=== PATIENT | female | born 1970 | race Caucasian/White ===

== ENCOUNTER 2019-10-26 07:57 | Emergency (ER) | payer OTHER, SELFPAY ==
[2019-10-26 08:01] VITALS: BP 148/83; PULSE 103; RESP 20; TEMP 36.8; O2SAT 99; BMI 30.4
--- NOTE | 2019-10-26 08:05 | W.ED.EXTPRO ---
HPI - Extremity Problem General: Chief complaint: Extremity Injury, Lower Stated complaint: Knee pain Time Seen by Provider: 10/26/19 08:01 History of Present Illness: HPI Narrative: Patient comes in today with complaints of left knee pain. Patient reports that when she had bent down yesterday and went to get up she felt a pop in her left knee. Since that time she has had pain and discomfort to the lateral aspect of the knee joint. Patient appears well. No obvious swelling or deformity is noted to the knee. Patient appears in moderate pain. Review of Systems General: Reports: 10 or more systems reviewed and unremarkable except in HPI and below Musc: Reports: joint pain (left knee) PFSH ED PFSH: Statuses (acute, chronic, etc) shown below reflect problem list status as previously entered and may not be historically accurate Social History Smoking and tobacco status: current every day smoker Physical Exam Const: COMMON NORMALS: no apparent distress and oriented x3 GENERAL APPEARANCE: cooperative HENMT: COMMON NORMALS: normocephalic, external ears normal, EAC's normal, TM's normal bilaterally and external nose normal HEAD & SCALP: normal to inspection and normocephalic FACE & SINUS: normal facial exam NOSE: external nose normal GENERAL EAR: hearing not grossly impaired EXTERNAL EAR: Yes external ears normal EXTERNAL AUDITORY CANAL: EAC's normal TYMPANIC MEMBRANE: TM's normal bilaterally MOUTH: oral and palatal mucosa normal THROAT: posterior oropharynx normal Eye: COMMON NORMALS: PERRL and EOMs intact bilaterally PUPIL: Yes PERRL Neck/C-Spine: COMMON NORMALS: full ROM and no lymphadenopathy Lymph: LYMPHATIC: no lymphedema noted Chest: COMMONS NORMALS: inspection of chest normal and palpation of chest normal Resp: COMMON NORMALS: normal respiratory effort and clear to auscultation bilaterally AUSCULTATION: clear to auscultation bilaterally Cardio: COMMON NORMALS: regular rate and regular rhythm RATE: regular rate RHYTHM: regular rhythm GI: COMMON NORMALS: normal to inspection, nondistended, normoactive bowel sounds and non-tender : COMMON NORMALS: Yes no CVA tenderness BLADDER/KIDNEY EXAM: Yes no CVA tenderness Back/Pelvis: COMMON NORMALS: no CVA tenderness and thoracic and lumbar spine normal to inspection Extremity: COMMON NORMALS: full ROM LEFT LOWER EXTREMITY: Yes knee joint (tenderness to lateral plateau of left tibia, no crepitus with knee movement) Left knee: Yes ROM (limited flexion and extension due to pain) Neuro: COMMON NORMALS: oriented x3, moves all extremities and no focal motor deficits Psych: COMMON NORMALS: mental status grossly normal and cooperative Skin: COMMON NORMALS: no rashes or lesions noted GENERAL SKIN EXAM: no rashes or lesions noted Course Vital Signs: Vital signs: Vital Signs Temperature 98.2 F 10/26/19 08:01 Pulse Rate 79 10/26/19 08:46 Respiratory Rate 17 10/26/19 08:46 Blood Pressure 131/79 10/26/19 08:46 Pulse Oximetry 98 10/26/19 08:46 MDM - Extremity (Nontraumatic) MDM Narrative: Medical decision making narrative: Patient comes in today with complaints of left lateral knee pain. Patient reports injury when she bent down hyperflexed her knee and when she went to stand up she felt a pop and pain. Patient has had pain and discomfort since that time yesterday. On exam tenderness is noted to the tibial plateau of the lateral left knee. Range of motion is limited due to pain with flexion and extension. Pulses are intact distally no swelling is noted distally. No significant swelling is noted to the knee. No tenderness of the patellar femoral tendon is noted. Differential diagnosis includes tibial plateau fracture, meniscal injury, strain, sprain. Reviewed exam with patient with recommendations for treatment and need for follow-up. Patient was written for prescriptions of medication for pain. Patient reported understanding of care plan and need for follow-up. Discharge Plan Discharge Patient Disposition: Home, Self-Care Clinical Impression: Acute internal derangement of knee Qualifiers: Laterality: left Qualified Code(s): M23.92 - Unspecified internal derangement of left knee Condition: Stable Prescriptions: New diclofenac sodium 75 mg tablet,delayed release (DR/EC) 75 mg PO BID Qty: 20 RF: 0 hydrocodone-acetaminophen 5-325 mg tablet 1 tab PO Q8H PRN (Reason: pain) Qty: 10 RF: 0 Discharge Orders: Discharge Order (Routine); Ordered 10/26/19 Ordered By: Law Mcdermott Referrals: Paulina Torres MD [Family Provider] - Discharge Diet: Usual diet Discharge Activity: Increase activity as tolerated Patient Instructions: Crutch Use, Hydrocodone/Acetaminophen (By mouth), Baclofen (By mouth), Crutch Instructions (ED), Knee Pain (ED), RICE Therapy (ED), Opioid Pain Management (ED), Opioid Safety Activity Restrictions/Additional Instructions: Most acute knee pain will take up to 7-10 days for improvement Use crutches until you can bear weight on the knee Use ice and heat for pain and discomfort Use Diclofenac routinely with acetaminophen for pain control Use hydrocodone as needed for breakthrough severe pain Gentle stretching and range of motion of the knee Follow-up with primary care in one week for recheck Follow-up with orthopedics for further treatment and evaluation Case management will contact you with assistance for orthopedic follow-up Interventions: ED Discharge Assessment Last Done: 10/26/19 08:46 Coding Level of Care Code ED Car Top Bolter for Jackeline Quintana Exam Problem Focused
[2019-10-26 08:06] VITALS: BP 148/83; O2SAT 98
--- NOTE | 2019-10-26 08:06 | XRR_ITS ---
PROCEDURE INFORMATION: Exam: XR Left Knee Exam date and time: 10/26/2019 8:24 AM Age: 49 years old Clinical indication: Pain; Knee; Left TECHNIQUE: Imaging protocol: XR Left knee. Views: 3 views. COMPARISON: No relevant prior studies available. FINDINGS: No acute fracture or dislocation is demonstrated. XR/XR knee LT 3V* [id number] IMPRESSION: No acute osseous abnormality is demonstrated.
[2019-10-26 08:10] VITALS: BP 148/83; O2SAT 98
[2019-10-26] MEDS: ketorolac 30 mg/mL INJ IM (08:12)
[2019-10-26] MEDS: HYDROcodone-acetaminophen 7.5-325 mg Tablet 1 TAB PO (08:12)
[2019-10-26 08:15] VITALS: BP 148/83; O2SAT 99
[2019-10-26 08:46] VITALS: BP 131/79; PULSE 79; RESP 17; O2SAT 98
--- NOTE | 2019-10-28 10:08 | DCPLANNER ---
city manager had message to schedule a follow up appointment for patient with ortho. city manager called ortho, spoke with Soledad, gave clinic patients information. city manager was told that patients information would be printed off and reviewed. Clinic will call case liner and patient with appointment information.
--- NOTE | 2019-10-29 11:33 | DCPLANNER ---
Patient has a follow up appointment scheduled for Wednesday, October 30, 2019 at 1:[address] Cho. Clinic will call patient with appointment information.
--- NOTE | 2019-11-01 15:44 | DCPLANNER ---
Patient did attend appointment scheduled for 10.30.19 with ortho.
== END 2019-10-26 08:52 | disposition home or self-care (01) ==
PROVIDERS: Emergency Provider Nurse Practitioner Family; Family Provider Family Medicine
DX: M23.92 Unspecified internal derangement of left knee (principal); F17.210 Nicotine dependence, cigarettes, uncomplicated
CPT/HCPCS: 73562; 96372; 99281; E0114; J1885

== ENCOUNTER 2019-11-08 11:38 | Outpatient (CLI) | payer OTHER, SELFPAY | END 2019-11-08 11:39 | disposition home or self-care (01) | LOC: SPT 11:38 | PROVIDERS: Family Provider Family Medicine; PCP Family Medicine; Visit Provider Orthopaedic Surgery | DX: M23.92 Unspecified internal derangement of left knee (principal) | CPT/HCPCS: L1812 ==

== ENCOUNTER 2019-11-08 14:58 | Outpatient (CLI) | payer OTHER, SELFPAY ==
--- NOTE | 2019-11-08 15:15 | MR_ITS ---
WS: [id number] MRI LEFT KNEE NONCONTRAST TECHNIQUE: Axial PD, coronal PD fat sat, coronal PD, sagittal PD, and sagittal PD fat-sat images obta ined. CLINICAL INFORMATION: Knee pain COMPARISON: None. FINDINGS: Distal quadriceps and patella tendons are intact. Moderate suprapatellar joint effusion. Small amount of prepatellar soft tissue edema. Anterior and posterior cruciate ligaments are intact. Complex extensive tear involving the body and posterior horn lateral meniscus. Diffuse blunting of th e posterior horn lateral meniscus with edema. Suspected displaced meniscal fragment into the intercon dylar fossa and along the anterior horn. Osteochondral defect involving the lateral tibial plateau wi th a small amount of subchondral edema. Osteochondral defect measures 5 mm. Displaced meniscal fragme nt measures 7 mm Chronic appearing intrasubstance signal abnormality involving the medial meniscus with mild chronic t hinning. No acute appearing medial meniscal tears. Diffuse edema along the medial and lateral collateral ligaments consistent with ligamentous sprain. C ollateral ligaments appear grossly intact. Subcutaneous edema about the knee soft tissues. Moderate c hondromalacia patella involving the lateral patella facet. This is advanced for patient this age. No subchondral edema. MR/MR knee LT wo con* [id number] IMPRESSION: 1. Moderate suprapatellar effusion. 2. Anterior and posterior cruciate ligaments appear intact. 3. Complex acute tear involving the body and posterior horn lateral meniscus w ith suspected displaced fragment into the intercondylar fossa and along the ant erior horn. Diffuse associated edema. 4. Underlying osteochondral defect involving the lateral tibial plateau with a small amount of subchondral edema. Osteochondral defect measures 5 mm. 5. Moderate chondromalacia patella involving the lateral patella facet is adva nced for patient this age. No subchondral edema in the patella. 6. Edema along the medial and lateral collateral ligaments consistent with mil d sprain. Collateral ligaments appear intact.
== END 2019-11-08 14:59 | disposition home or self-care (01) ==
LOC: RADSHAW 15:01
PROVIDERS: Family Provider Family Medicine; PCP Family Medicine; Visit Provider Orthopaedic Surgery
DX: M25.462 Effusion, left knee (principal); S83.272A Complex tear of lateral meniscus, current injury, left knee, initial encounter; X58.XXXA Exposure to other specified factors, initial encounter; M22.42 Chondromalacia patellae, left knee; R60.9 Edema, unspecified
CPT/HCPCS: 73721

== ENCOUNTER 2019-11-26 08:44 | Day surgery (SDC) | payer OTHER, SELFPAY ==
[2019-11-25 17:07] VITALS: BMI 34.7
[2019-11-26] VITALS (11 sets, daily range): BP systolic 122–159; BP diastolic 84–110; PULSE 8–103; RESP 13–20; TEMP 36.3–36.7; O2SAT 93–100
[2019-11-26] MEDS: acetaminophen 500 mg Tablet 1000 MG PO (09:40)
[2019-11-26] MEDS: sodium chloride 0.9% 1,000 ML 30 ML IV (09:40)
[2019-11-26] MEDS: CELEcoxib 200 mg Capsule 400 MG PO (09:40)
--- NOTE | 2019-11-26 10:10 | ANES.PREANE2 ---
Pre-Anesthetic Assessment Pre-Anesthetic Assessment: Height/Weight: Height 1.73 m Weight 103.419 kg Temp Pulse Resp BP Pulse Ox 97.6 F 97 18 137/84 98 11/26/19 09:44 11/26/19 09:44 11/26/19 09:44 11/26/19 09:44 11/26/19 09:44 Preop Diagnosis: Left knee lateral meniscal tear and lateral tibial osteochondral lesion Proposed Procedure: Operation Date: 11/26/19 10:25 Proposed Procedures p left knee arthroscopy with resection lateral meniscus vs repair, poss debridment microfracture vs repair of osteochondral defect lateral tibial plateau 12560, 76711 M23.92 M23.359 M95.8(Left) - Diogenes Cho DO Last intake: Intake Last Liquid Date 11/25/19 Last Liquid Time 22:00 Last Solid Date 11/25/19 Last Solid Time 22:00 Social: Social History: Alcohol (occ) and Tobacco Exam: Pre-Anes Outpt Exam: alert, oriented x 3, clear to auscultation bilaterally and regular rate & rhythm Airway: Submandibular: WNL Cervical ROM: WNL MP: 2 Dentition: Other (teeth ok) History/ROS: No significant history except as noted Pulmonary: Pulmonary: None reported CV/HEM: CV/HEM: HTN : : None reported Hepatic: Hepatic: None reported GI: GI: None reported Metabolic: Metabolic: None reported Musc/skel: Musc/skel: None reported Neuropsych: Neuropsych: None reported Anesthetic Plan: ASA status: 2 Anesthesia: Anesthesia Evaluation and General Risk of > 500 ml blood loss (7ml/kg in children): No Meds/Allergies Current Medications: Current Medications Generic Name Dose Route Start Last Admin Trade Name Freq PRN Reason Stop Dose Admin Sodium Chloride 1,000 mls @ 30 ml s/hr 11/26/19 09:15 11/26/19 09:40 Sodium Chloride 0.9% IV 11/27/19 09:14 30 mls/hr .Q24H SANG Administration PFSH Anesthesia PFSH: Medical History (Updated 11/26/19 @ 10:11 by Osmani Villalpando MD) Accelerated essential hypertension Acute lateral meniscus tear of left knee MCL sprain of left knee Osteochondral lesion Surgical History H/O removal of cyst Family History Other Diabetes Social History Smoking and tobacco status: current every day smoker Data Anesthesia Cardiac Studies: No Data to Display
--- NOTE | 2019-11-26 12:06 | P.HPUD_ITS ---
Surgery/Procedure H&P Update DATE OF PROCEDURE: November 26, 2019 DATE H&P PERFORMED: 11/25/19 H&P UPDATE INFORMATION: H&P completed within last 30 days, No changes to prior documentation and H&P is in [facility] EMR on date indicated PREOP DIAGNOSIS: Left knee lateral meniscal tear and lateral tibial osteochondral lesion PLANNED PROCEDURE: Operation Date: 11/26/19 10:25 Proposed Procedures p left knee arthroscopy with resection lateral meniscus vs repair, poss debridment microfracture vs repair of osteochondral defect lateral tibial plateau 58447, 47735 M23.92 M23.359 M95.8(Left) - Diogenes Cho DO
--- NOTE | 2019-11-26 12:07 | P.OP_ITS ---
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 Stable osteochondral lesion lateral tibial plateau Procedure Done: Diagnostic arthroscopy left knee with resection of lateral meniscal bucket-handle tear Implants: None Specimens removed/disposition: Arthroscopic shavings and portions of meniscus debrided and disposed of in OR Pathology: none sent Surgeon: Diogenes Cho Anesthesia: General Estimated blood loss (mL): 10 Tourniquet time (min): 50 (At 300 mmHg pressure) Complications: No apparent complications Findings: Mild synovitis left knee Grade III chondromalacia patella Intact medial compartment articular surface and meniscus Anterior and posterior cruciate ligaments intact both visually endoprobe Displaced bucket-handle tear of the lateral meniscus that was displaced into the intercondylar notch. When the meniscus was reduced actually looked as if it could have been a discoid meniscus as well the patient had nearly an entire meniscal detachment and a white on white region for this reason we resected the meniscus versus performing a repair. Osteochondral lesion on the lateral tibial plateau was found to be stable and more consistent with fissuring of the hyaline cartilage then osteo-chondritis dissecans type lesion. Condition: stable Disposition: PACU Brief History: 49-year-old white female who in October was bending down to load pain and then stood up and noticed 3 popping sensations in her left knee. Since that time she is had persistent complaints of pain and wanting to give way of her left knee. Plain film x-rays show no evidence of fracture or dislocation. MRI shows displaced lateral meniscal tear into the intercondylar notch suprapatellar effusion and possibility of an osteochondral lesion on the lateral tibial plateau. Risk, benefits and potential complications of surgery were discussed with the patient. Risks include are not limited to infection, nerve/blood vessel/injury, failure to leave all pain. We discussed if a meniscal repair was performed there would be a possibility of a re-tear. We also discussed if she required repair of the osteochondral lesion that she may need to be partially weightbearing postoperatively. All questions were answered patient was agreeable to proceed with surgery. Procedure: 1.5 g [facility] Patient was identified. Surgical permit was signed. Surgical site was signed. Patient received 1.5 g of cefuroxime intravenously for surgical prophylaxis. She was taken to the operating. She was placed on the operative table. She was placed under general anesthesia that difficulty. A tourniquet was placed about the upper aspect the left thigh. The left lower extremities and sterilely prepped and draped in usual fashion. A timeout was performed. The operative limb was exsanguinated using Esmarch bandage tourniquet inflated to 300 mmHg pressure. Standard anteromedial anterolateral portals were made with #11 blade. The arthroscope via the arthroscopic sheath was inserted in the suprasellar pouch knee distended with sterile saline with dilute epinephrine solution via the arthroscopic pump. Initially a shaver was placed through the anteromedial portal and partial synovectomy was performed to allow for visualization within the knee. Using a probe we identified that the articular surfaces in the medial compartment were intact as was the meniscus. Cruciate ligaments are intact. The lateral compartment revealed a displaced bucket-handle tear which in the posterior area was a white on white type of tear and was felt to have very low likelihood of being able to heal. For this reason using motorized shaver a meniscal biters to be performed near total lateral meniscectomy. The area of fissuring of the cartilage noted on MRI proved to be only grade 2 to early grade 3 chondromalacic changes but no loose osteochondritis dissecans type lesion. No treatment was required. The knee was copiously irrigated with sterile saline. The knee was injected with 10 cc of half percent ropivacaine and 40 mg of Kenalog. The 2 portal sites were closed with 4-0 nylon on skin. Antibiotic ointment was applied followed by sterile dressings with an Esdras overwrap. Tourniquet was deflated during application of dressings. The patient was aroused from general anesthesia. She was taken to the recovery room. She bhumi erated surgery well. All counts are correct.
[2019-11-26] MEDS: cefUROXime 1,500 MG in sodium chloride 0.9% (plus) 50 ML 100 MG IV (12:40)
[2019-11-26] MEDS: EPINEPHrine 1 mg/mL INJ 3 MG XX (13:48)
[2019-11-26] MEDS: triamcinolone 40 mg/mL SDV IM (14:00)
--- NOTE | 2019-11-26 14:14 | SUR.PHASEI ---
1412 PATIENT TO PACU AT THIS TIME. NO DISTRESS. RR EVEN AND UNLABORED. SPO2 99% ON RA. DRESSING INTACT TO LEFT KNEE, CDI, PEDAL PULSE STRONG AND PRESENT.
[2019-11-26] MEDS: fentaNYL 50 mcg/mL INJ 2mL IVP (14:33)
--- NOTE | 2019-11-26 14:52 | SUR.PHASEI ---
9769 PATIENT TO OPS, PAIN 7/10, WANTING PAIN PILL IN OPS. DRESSING INTACT TO LEFT KNEE, WITH FIRST ICE IN PLACE. PEDAL PULSE STRONG.
--- NOTE | 2019-12-01 20:03 | PM.OP ---
Operative Report Date of procedure: December 01, 2019 Pre-op Diagnosis: Left knee lateral meniscal tear and lateral tibial osteochondral lesion Post-op diagnosis: same Post-op Findings: see operative report below Procedure Done: diagnostic arthroscopy of left knee with resection of lateral meniscal bucket-handle tear Implants: not applicable Specimens removed/disposition: debrided portions of lateral meniscus disposed of in operating room Pathology: none sent Surgeon: Diogenes Cho Anesthesia: General Estimated blood loss (mL): 10 Tourniquet time (min): 50 Tourniquet time: at 300 mmHg pressure Complications: no apparent complications Findings: mild synovitis Medial compartment intact Anterior cruciate ligament and PCL intact Displaced bucket-handle tear into the intercondylar notch. grade 2-3 degenerative cartilage changes lateral tibial plateau an area of osteochondral lesion seen on MRI Condition: stable Disposition: PACU Brief History: 49-year-old white female who was bending to load paint on a brush felt a series of popping sensations in her left knee. Since that time she's had complaints of pain and giving way of her knee. Exam was suggestive of lateral compartment pathology. X-ray show no fracture-dislocation MRI shows MCL sprain and a tear of the lateral meniscus with displacement into the intercondylar notch plus the potential for osteochondral lesion noted with the fissuring in the posterior central area of lateral tibial plateau an MRI. Risks, benefits and potential complications of arthroscopic surgery discussed the patient. Risks include aren't limited to failure to evolve pain if the meniscal repair is perform the possibility of re-tear, stiffness, wound healing complications, nerve/blood vessel/tendon injury. Medical complications can include blood clots, heart attack, stroke risk up to including . All questions were answered patient agreeable to proceed with surgery. Procedure: patient identified. Surgical site was signed. Surgical permit was signed. Patient received 1.5 g of Zinacef for microbial prophylaxis. She was taken to the operating room. She is placed under general anesthesia. A tourniquet was placed but the upper aspect of the left lower extremity. The left lower extremity was then sterilely prepped and draped usual fashion. Timeout was performed. The operative limb was then exsanguinated using an Esmarch bandage and the tourniquet inflated to 300 mmHg pressure. Standard anteromedial anterolateral portals were made with #11 blade. The arthroscopic sheath and arthroscope were introduced via the anterolateral portal into the suprapatellar pouch. The knee was distended using sterile saline and dilute epinephrine solution through a arthroscopic pump. We introduced a motorized shaver through the anteromedial portal and debrided the synovium and fat pad to visualize the medial compartment of the knee and the entrance into the lateral aspect of the knee. Medial compartment was examined found to be intact. Anterior cruciate ligament and PCL are intact. A displaced large bucket-handle tear was noted into the intercondylar notch. The meniscus was reduced also had the appearance of a discoid type meniscus. Once the meniscus was reduced we debrided the area that appeared to be a discoid meniscus back to a normal sculpted meniscus. The posterior horn tear was white on white type of injury to the meniscus I did not think this would heal for this reason we elected to debride the meniscus. Essentially an entire lateral meniscectomies was performed. The tibial plateau. The posterior horn of the lateral meniscus showed some grade 2 fissures and a believe this represents focus on MRI. The knee was malik irrigated with sterile saline. Used to arthroscopic cautery to coagulate some of vessels along the capsular junction with the meniscus had been resected. The knee was injected with 10 mL of half percent ropivacaine and 40 mg of Kenalog. The portals, 2 in number closed with nylon on skin followed by antibiotic ointment and sterile dressings. Tourniquet was deflated during application of dressings. The patient was aroused from general anesthesia. She was taken to recovery room. She tolerated surgery well. All counts are correct. this may be a repeat dictation for this patient. I believe I dictated this operative report on the date of surgery however when I went to review the record no dictation was available.
== END 2019-11-26 15:26 | disposition home or self-care (01) ==
PROVIDERS: Family Provider Family Medicine; PCP Family Medicine; Visit Provider Orthopaedic Surgery
PROC: (CPT 29870; principal; 2019-11-26 10:20)
DX: S83.252A Bucket-handle tear of lateral meniscus, current injury, left knee, initial encounter (principal); X58.XXXA Exposure to other specified factors, initial encounter; I10 Essential (primary) hypertension; Z83.3 Family history of diabetes mellitus; F17.210 Nicotine dependence, cigarettes, uncomplicated
CPT/HCPCS: 29881; 12345; 81025; J0171; J0697; J1100; J1885; J2001; J2270; J2405; J2795; J3010; J3301; J3490; J7030

== ENCOUNTER 2019-12-02 10:15 | Outpatient (CLI) | payer OTHER, SELFPAY | END 2019-12-02 10:16 | disposition home or self-care (01) | LOC: SPT 10:16 | PROVIDERS: Family Provider Family Medicine; PCP Family Medicine; Visit Provider Orthopaedic Surgery | DX: Z46.89 Encounter for fitting and adjustment of other specified devices (principal) | CPT/HCPCS: L1830 ==

== ENCOUNTER 2019-12-11 15:52 | Outpatient (CLI) | payer OTHER, SELFPAY ==
--- NOTE | 2019-12-11 16:30 | USCV_ITS ---
Brayan Zapata Age: 49 Gender: F : 1970 Exam Date: 12/11/2019 16:21 Ordering Phys: Diogenes Cho DO Technologist: SHAHEEN PEDERSEN Exam Location: [facility]_ Indication: LEFT CALF PAIN HISTORY: Status post knee surgery. PROCEDURES: Examined were the left greater saphenous, common femoral, femoral, profunda, popliteal, posterior tibial veins, and peroneal trunk.. FINDINGS: Normal 2-D Doppler and augmentation and compressibility throughout the lower extremity venous structures. Additional imaging through the proximal calf veins also reveals no thrombus. Limited evaluation of the greater saphenous vein is patent with no thrombus. CONCLUSIONS No DVT left lower extremity. Dr. Letitia Mckinney DO (Electronically Signed) Final Date: 12 December 2019 09:32 S
== END 2019-12-11 15:53 | disposition home or self-care (01) ==
LOC: RAD 15:52
PROVIDERS: Family Provider Family Medicine; PCP Family Medicine; Visit Provider Orthopaedic Surgery
DX: M79.662 Pain in left lower leg (principal); Z98.890 Other specified postprocedural states
CPT/HCPCS: 93971

== ENCOUNTER → 2020-04-15 08:30 | Outpatient (BNVA) | payer OTHER, SELFPAY | PROVIDERS: Family Provider Family Medicine; PCP Family Medicine; Visit Provider Orthopaedic Surgery | DX: M17.12 Unilateral primary osteoarthritis, left knee (principal); M25.562 Pain in left knee; M25.462 Effusion, left knee | CPT/HCPCS: 73560; 73565 ==

== ENCOUNTER 2021-07-15 13:04 | Outpatient (CLI) | payer OTHER, SELFPAY ==
--- NOTE | 2021-07-15 13:13 | MM_ITS ---
WS: [id number] BILATERAL DIGITAL SCREENING MAMMOGRAPHY WITH CAD CLINICAL INFORMATION: SCREENING HISTORY: Screening mammogram. No current complaints. COMPARISON: March 27, 2015. TECHNIQUE: Bilateral CC and MLO views. FINDINGS: The breasts are composed of heterogeneous fibroglandular density tissue, which can limit the detectio n of small underlying mass lesions. No suspicious mass, asymmetry, calcifications, or architectural d istortion. No evidence of malignancy. Stable lucent centered calcification right breast. MM/[place] [id number] IMPRESSION: BI-RADS: 2-Benign FOLLOW UP: 1 Year Follow-up Recommend return to annual screening mammography.
== END 2021-07-15 13:05 | disposition home or self-care (01) ==
PROVIDERS: PCP Family Medicine; Visit Provider Family Medicine
DX: Z12.31 Encounter for screening mammogram for malignant neoplasm of breast (principal)
CPT/HCPCS: 77067

== ENCOUNTER 2024-05-02 10:00 | Outpatient (CLI) | payer MEDICAID, SELFPAY ==
--- NOTE | 2024-05-02 09:43 | MM_ITS ---
WS: [id number] BILATERAL SCREENING DIGITAL TOMOSYNTHESIS MAMMOGRAM WITH CAD HISTORY: SCREENING COMPARISON: 07/15/2021, 03/27/2015 Bilateral CC and MLO views with tomosynthesis and synthetic mammography submitted. Computer aided det ection analyzed. Breast composition: The breasts are heterogeneously dense, which may obscure small masses. No suspici ous masses, microcalcifications or architectural distortion. Benign calcifications in each breast. MM/[place] [id number] IMPRESSION: BI-RADS: 2-Benign FOLLOW UP: 1 Year Follow-up
== END 2024-05-02 10:01 | disposition home or self-care (01) ==
PROVIDERS: PCP Family Medicine; Visit Provider Family Medicine
DX: Z12.31 Encounter for screening mammogram for malignant neoplasm of breast (principal); R92.333 Mammographic heterogeneous density, bilateral breasts; R92.1 Mammographic calcification found on diagnostic imaging of breast
CPT/HCPCS: 77063; 77067

== ENCOUNTER → 2024-05-15 10:58 | Outpatient (BNVA) | payer MEDICAID, SELFPAY | PROVIDERS: PCP Family Medicine; Visit Provider Specialist | DX: M25.561 Pain in right knee (principal); M23.91 Unspecified internal derangement of right knee | CPT/HCPCS: 73560; 73565 ==

== ENCOUNTER → 2024-05-21 09:21 | Outpatient (BNVA) | payer MEDICAID, SELFPAY | PROVIDERS: PCP Family Medicine; Visit Provider Podiatrist Foot & Ankle Surgery | DX: M79.671 Pain in right foot (principal); M19.071 Primary osteoarthritis, right ankle and foot; M21.41 Flat foot [pes planus] (acquired), right foot | CPT/HCPCS: 73630 ==

== ENCOUNTER 2024-06-24 07:36 | Outpatient (CLI) | payer MEDICAID, SELFPAY ==
--- NOTE | 2024-06-24 08:00 | MR_ITS ---
WS: [id number] MRI RIGHT KNEE NONCONTRAST TECHNIQUE: Axial PD, coronal PD fat sat, coronal PD, sagittal PD, and sagittal PD fat-sat images obta ined. CLINICAL INFORMATION: right knee pain COMPARISON: None. FINDINGS: Distal quadriceps and patella tendons are intact. Hypertrophic patella. Prepatellar and infrapatellar soft tissue edema. Small suprapatellar effusion. Hypertrophic changes along the joint line. ACL and PCL appear intact. Medial and lateral collateral l igaments appear intact. Moderate chondromalacia patella. Medial and lateral patellar retinacula appear intact. Advanced joint space narrowing lateral joint compartment with chronic tear and degeneration of the lateral meniscus . Blunting of the anterior and posterior horns. Near [id number] articulation. High-grade tear involving the medial meniscus with peripheral extrusion. Moderate narrowing of the me dial joint compartment. Blunting of the posterior horn medial meniscus with small parameniscal cyst m easuring 5 mm. MR/MR knee RT wo con* [id number] IMPRESSION: 1. ACL and PCL appear intact. 2. 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 3. High-grade complex tears involve the medial and lateral meniscus with perip heral extrusion of the medial meniscus. 4. 5 mm posterior horn medial meniscus parameniscal cyst 5. Moderate chondromalacia patella. Outbridge grading: grade III: partial-thickness cartilage loss with focal ulcer ation
== END 2024-06-24 07:37 | disposition home or self-care (01) ==
LOC: RAD 07:36
PROVIDERS: PCP Family Medicine; Visit Provider Specialist
DX: M17.11 Unilateral primary osteoarthritis, right knee (principal); S83.271A Complex tear of lateral meniscus, current injury, right knee, initial encounter; S83.231A Complex tear of medial meniscus, current injury, right knee, initial encounter; M23.021 Cystic meniscus, posterior horn of medial meniscus, right knee; M22.41 Chondromalacia patellae, right knee; X58.XXXA Exposure to other specified factors, initial encounter
CPT/HCPCS: 73721